=== PATIENT | female | born 1960 | race Caucasian/White ===

== ENCOUNTER 2016-07-14 19:08 | Emergency (ER) | payer MEDICARE ==
[2016-07-14 19:41] LABS: Hemoglobin 13.9 gm/dL (12.5-16.0); Mean Corpuscular Hemoglobin 29.4 pg (27-31); Mean Corpuscular Hgb Conc 33.1 g/dl (32-36); Mean Platelet Volume 11.2 fl (6.0-9.5); Neutrophil # 6.7 K/mm3 (1.3-6.0); Neutrophil % 62.5 % (42-75.0); Platelet Count 195 K/mm3 (150-450); Red Blood Count 4.72 M/mm3 (4.2-5.4); Red Cell Distribution Width 13.5 % (11.5-14.0); White Blood Count 10.6 K/mm3 (4.0-10.5)
[2016-07-14 19:52] LABS: Prothrombin Time (Patient) 9.3 Seconds (9.4-11.4)
[2016-07-14 19:54] LABS: INR 0.89 INR (0.90-1.10); Partial Thrombolplastin Time 25.8 Seconds (24-32)
[2016-07-14 19:57] LABS: ALT 23 U/L (19-67); AST 13 U/L (0-48); Albumin * 3.1 gm/dl (3.4-5.0); Alkaline Phosphatase * 81 U/L (50-170); Anion Gap 13.2 mmol/L (6.8-13.8); BUN/Creatinine Ratio 16.9 (9.0-21.6); Bilirubin, Total 0.3 mg/dL (0.0-1.1); Blood Urea Nitrogen 15 mg/dL (3-23); Ca. Corrected For Albumin 8.5 mg/dL (8.4-10.2); Calcium * 8.1 mg/dL (7.9-10.9); Carbon Dioxide 26.3 mmol/L (24-32.6); Chloride 105 mmol/L (97-106); Glucose * 109 mg/dL (70-110); Potassium 3.5 mmol/L (3.4-4.6); Sodium 141 mmol/L (132-142); Total Protein 7.5 gm/dL (6.2-8.2); Troponin I Less than 0.017 ng/ml (0.00-0.10)
--- NOTE | 2016-07-14 20:02 | ERNOTE ---
Chest Pain/Cardiac HPI Date of Service: 07/14/16 Chief Complaint: Chest Pain Time Seen by Provider: 07/14/16 19:58 Source: patient Immunizations: IMMUNIZATION HX Immunizations Up to Date Yes History of Influenza Vaccine No Hx Pneumococcal Vaccination Yes Allergies/Adverse Reactions: Allergies penicillin G Allergy (Unknown, Verified 07/14/16 19:22) "old tetanus shots" Allergy (Uncoded 07/14/16 19:22) Home Medications: HOME MEDICATIONS Ibuprofen 09/14/12 [Last Taken Unknown] Gabapentin [Neurontin] 300 mg PO BID 08/06/15 [Last Taken Unknown] Gabapentin [Neurontin] 600 mg PO HS 08/06/15 [Last Taken Unknown] Simvastatin [Zocor] 20 mg PO HS 08/06/15 [Last Taken Unknown] Narrative: URI SX X 1 WEEK. GIVEN SOME ATB BUT IS NO HELP. C/O CHEST PAIN RADIATING TO SHOULDERS. PAIN OCCURING WITH COUGH AND DEEP BREATH. NO FEVER. Review of Systems - Review of Systems Constitutional: Present: recent illness ENT: Present: nose congestion Respiratory: Present: cough, other - CHEST PAIN WITH COUGH Cardiology: Present: no symptoms reported Gastrointestinal/Abdominal: Present: no symptoms reported Musculoskeletal: Present: no symptoms reported Skin: Present: no symptoms reported Neurological: Present: no symptoms reported Hematologic/Lymphatic: Present: no symptoms reported Psych: Present: no symptoms reported All Other Systems: All systems neg except as marked - Patient's Past Medical History Patient History - Medical: Obesity, Other Patient History - Cardiac/Respiratory: Hyperlipidemia Patient History - Cancer: No Hx of Cancer Patient History - Surgical Procedures: Appendectomy, Hysterectomy, Total Knee Replacement, Other Patient History - Other: None - Social History Living Situations: home Psych History: No pertinent hx Smoking Status: Former smoker Alcohol Use: none Drug Use: none - Immunizations Immunizations Up to Date: Yes Hx Pneumococcal Vaccination: Yes History of Influenza Vaccine: No Physical Exam - Physical Exam General Appearance: Present: wd/wn, alert, no apparent distress Ears, Nose, Throat: Present: normal except -, nasal congestion Neck: Present: normal inspection Respiratory: Present: no respiratory distress, normal breath sounds, no accessory muscle use, chest nontender, lungs clear Cardiovascular/Chest: Present: regular rate, rhythm, no murmur, normal peripheral pulses Neurological Exam: Present: alert, oriented Skin Exam: Present: normal color, warm/dry. Absent: skin rash ED Progress - Vital Signs Vital Signs: Vital Signs 07/14/16 19:15 Temperature 36.5 C Pulse Rate 91 Respiratory 20 Rate Blood Pressure 120/73 O2 Sat by Pulse 97 Oximetry - X-Ray X-Ray #1 X-Ray: chest Interpretation: Reviewed by me - CHRONIC CHANGES CONSISTENT WITH COPD , NO INFILTRATE , RIB FX OR PNEUMO - Progress/Reassessment Chief Complaint: Chest Pain Departure - Departure Clinical Impression: Chest pain in adult Disposition: Home Follow Up Needed Condition: Good Instructions: Chest Wall Pain, [id number], Nonspecific Chest Pain, Easy-to- Read Additional Instructions: ALL THE LABS , EKG AND CHEST XRAY HERE ARE NORMAL. TRIAL OF WARM COMPRESSES TO SORE AREA AND TRIAL OF IBUPROFEN OR ALEVE FOR SORENESS. YOUR CHEST PAIN IS LIKE FROM STRAIN CAUSED BY COUGHING. IF WORSE BE SURE TO RETURN TO THE ER OR CHECK WITH YOUR FAMILY DOCTOR. Referrals: Isatu Dolan MD [Primary Care Provider] -
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
[2016-07-14] MEDS ORDERED: ACETAMINOPHEN 325 MG TABLET PO ONE (21:18)
[2016-07-14 23:25] VITALS: BP 116/52
== END 2016-07-14 22:50 | disposition home or self-care (01) ==
LOC: ER 19:08
DX: R07.9 Chest pain, unspecified (principal); Z87.891 Personal history of nicotine dependence

== ENCOUNTER 2016-09-18 07:58 | Inpatient (IN) | payer MEDICARE ==
[~2016-09-18 07:58] MED LIST: MORPHINE SULFATE 15 MG TABLET.SA PO PRN; RINGERS SOLUTION,LACTATED 1,000 ML IV PRN; ROPIVACAINE HCL/PF 100 MG, EPINEPHrine 0.2 MG, KETOROLAC TROMETHAMINE 30 MG in NORMAL S... IJ PRN; TRANEXAMIC ACID 1,000 MG in NORMAL SALINE 100 ML IV PRN; ceFAZolin SODIUM 1 GM VIAL IV PRN
--- OUTSIDE RECORDS SUMMARY | 2016-09-18 08:02 | XMS REPORT | Continuity of Care Document ---
:1960 Author Organization [facility] ([facility]) Address [address] [place] [address] Phone [phone] Care Team Providers Name Role Phone Isatu Dolan Primary Care Provider [phone] Source Comments This disclosure is being made pursuant to the Care Everywhere program, applicable federal and state laws, and may not contain all informaitonavailable regarding this patient.[facility] ([facility]) Active Allergies and Adverse Reactions Allergen Noted [...] 1.753 m (5' 9") 04/02/2016 1:58 PM LATIN AMERICAN STUDIES DIRECTOR Weight 97.977 kg (216 lb) 04/02/2016 1:58 PM LATIN AMERICAN STUDIES DIRECTOR Body Mass Index 31.88 04/02/2016 1:58 PM LATIN AMERICAN STUDIES DIRECTOR Oxygen Saturation 98% 12/27/2013 12:48 PM CDT [...]
[2016-09-18] MEDS ORDERED: RINGERS SOLUTION,LACTATED 1,000 ML IV ONE ×3 (10:10→12:10)
[2016-09-18] MEDS ORDERED: ceFAZolin SODIUM 1 GM VIAL IV ONE (10:30)
[2016-09-18] MEDS ORDERED: MAG HYDROX/ALUMINUM HYD/SIMETH 30 ML UDC PO PRN (12:36)
[2016-09-18] MEDS ORDERED: ZOLPIDEM TARTRATE 5 MG TABLET PO PRN (12:36)
[2016-09-18] MEDS ORDERED: oxyCODONE HCL/ACETAMINOPHEN 1 TAB TABLET PO PRN (12:36)
[2016-09-18] MEDS ORDERED: ACETAMINOPHEN 500 MG TABLET PO PRN (12:36)
[2016-09-18] MEDS ORDERED: diphenhydrAMINE HCL 50 MG/ML VIAL IV PRN (12:36)
[2016-09-18] MEDS ORDERED: HYDROmorphone HCL 1 MG/ML DISP.SYRIN IV PRN (12:36)
[2016-09-18] MEDS ORDERED: PROMETHAZINE HCL 5 MG in DEXTROSE 5 % IN WATER 50 ML IV PRN ×2 (12:36)
[2016-09-18] MEDS ORDERED: MAGNESIUM HYDROXIDE 30 ML UDC PO PRN (12:36)
[2016-09-18] MEDS: DEXTROSE 5%-LACTATED RINGERS 1,000 ML IV PRN ×2 (13:26→19:51)
[2016-09-18] MEDS: KETOROLAC TROMETHAMINE 30 MG/ML VIAL IV SCH ×2 (13:33→20:31)
[2016-09-18] MEDS: ceFAZolin SODIUM 2 GM in DEXTROSE 5 % IN WATER 50 ML IV SCH ×4 (13:33→20:30)
--- NOTE | 2016-09-18 14:30 | OR ---
Operative Report - Dictated Report Narrative: Date: 09/18/2016 Preoperative diagnosis: Right Knee degenerative joint disease. Postoperative diagnosis: Right Knee degenerative joint disease. Procedure: Right Total knee arthroplasty. Surgeon: Gera Adkins M.D. Child Care Coordinator: Mendez Last PA-C, Ivan Herron PA-C Anesthesia: Spinal with regional block and local periarticular joint injection. Complications: None Specimens: Bone for disposal. Estimated blood loss: Minimal. Tourniquet time: 89 Minutes at 325 millimeters of mercury. Retained implants: Depuy Attune size 6 narrow right lugged cemented posterior stabilized femoral component. Size 5 fixed-bearing cemented tibial platform. 6 by 5 millimeter posterior stabilized cross-linked tibial insert. 38 millimeter medialized patella button. Indications: Mrs. Odom is a 55-year-old female who has had long-standing right knee pain. This patient was followed in my clinic for period of time with significant complaints of right knee pain consistent with arthritic changes. They had failed conservative measures including, but not limited to, activity modification, passage of time, medications, and other conservative measures. Patient wished to proceed with surgical treatment. The risks, benefits, and alternatives were discussed in clinic. The risks of , blood clots, bleeding, infection, nerve/tendon blood vessel/ injury, malposition of components, intraoperative fracture, postoperative limited range of motion, persistent pain, failure of components, and need for additional procedures. Patient wished to proceed consent was obtained after answering all questions. Procedure: After marking the correct extremity on the floor, the patient was taken to the operating room. A timeout was performed. IV antibiotics consisting of Ancef were administered prior to the procedure. A regional followed by spinal anesthetic was induced by anesthesia on the operative table with all bony prominences well-padded. Cruz catheter was placed, and a bump was placed under the operative side buttock. SCDs and CINTHIA hose were utilized on the nonoperative leg. A well-padded tourniquet was applied to the operative thigh. The operative leg was then pre-scrubbed with alcohol prepped, and draped in a standard sterile fashion. After exsanguinating the extremity with an Esmarch bandage, the tourniquet was inflated. After marking out the anterior knee for standard incision centered over the patella, the skin was incised and dissected down to the joint retinaculum. The joint retinaculum was marked out as well as the horizontal axis of the patella, and a standard medial parapatellar arthrotomy was then made. The most proximal aspect of the quadriceps tendon and the patella tendon insertion were protected from release. A partial synovectomy was performed as well as a resection of the infrapatellar fat pad. The distal femoral fat pad proximal to the trochlea was also resected using cautery. The soft tissues were elevated off the medial aspect of the proximal tibia using a Hartmann elevator ensuring that we did not transect the medial collateral ligament. Upon initial evaluation range of motion was approximately 5 degrees to 120 degrees of flexion. There were signs of advanced arthrosis in the medial, lateral, and patellofemoral joint spaces. There were large marginal osteophytes which were removed with a rongeur. The knee was hyperflexed and the patella was tucked laterally. Protecting the surrounding soft tissues with Homans, an entry drill was placed down the femoral canal using Whitesides line for guidance into the entry point. The intramedullary femoral alignment arun was utilized in order to cut the distal femur in 5 degrees of valgus resecting 10 millimeters of bone. Next the distal femur was sized to a size 6. A posterior referencing guide was utilized to place the distal femoral cutting block in 3 degrees of external rotation. This was pinned into place. The rotation was confirmed both visually and based on anatomic landmarks. The 4 in 1 cutting jig of the appropriate size was utilized in order to make all bony cuts. The angle wing was used to ensure no notching. Retractors were utilized in order to protect surrounding soft tissues. This cut did not result in any excessive notching. We then cut the box centered over the distal femur. This allowed for resection of the anterior and posterior cruciate ligaments. I then turned my attention to the preparation of the tibia. Using an extra medullary tibial alignment arun, 6 millimeters of bone was resected off the medial articular surface. This was made perpendicular to the mechanical axis of the joint with the alignment arun centered over the ankle mortise. The alignment arun was checked and was noted to be parallel to the mechanical axis, centered over the medial one third of the tibial tubercle, paralleling the anterior surface of the tibia. We then turned our attention to the remaining meniscus and soft tissues. These were removed while protecting the surrounding ligaments and soft tissues. The marginal osteophytes off the anterior, posterior, medial, lateral aspects of the femur and tibia were removed. The tibia was sized out to a size 5. Next the tibia was drilled and punched in an externally rotated position. Next the trial femur and a series of tibial inserts were utilized in order to allow for full extension and maximal flexion. It was found that a 5 millimeter insert gave the best range of motion and stability at multiple flexion points as well as at full extension there was less than 2 mm of gapping both medially and laterally. There is minimal anterior translation with the knee at 90 degrees of flexion and no signs of being able to dislocate the knee. The patella was then prepared. The initial thickness was 26 millimeters. This was reamed down to 15 millimeters parallel to the anterior surface of the patella. It was sized out to a size 38 medialized patella button. This was then drilled and trialed. Without any medial restraint the patella tracked appropriately and did not sublux or dislocate. At this point, it was felt these were the appropriate sized implants, and all trials were removed. The standard periarticular joint injection consisting of ropivacaine, Toradol, and epinephrine were injected into the periarticular joint tissues. The bony surfaces were thoroughly irrigated with a pulsatile- suction saline irrigation device. A bone plug from the prior resected anterior chamfer cut was placed into the drill hole at the distal femur. The bony surfaces were then dried in preparation for placement of the implants. The cement was vacuum mixed per the systems specialist's instructions. The cement was placed on the dry bony surfaces and posterior aspect of the implants. The implants were impacted into place, removing all extruded cement. At this point anesthesia administered tranexamic acid per protocol intravenously. The knee was placed in extension with axial loading with the trial insert while the cement cured. Once the cement cured, all remaining extruded cement was removed. The knee was placed through a range of motion with the trial insert to ensure appropriate range of motion and stability. Final range of motion was approximately 0 to 125 degrees. The knee was again thoroughly irrigated with pulsatile saline lavage. The final polyethylene insert was then impacted into place ensuring no retained soft tissues. The remaining periarticular joint injection was injected. A medium Hemovac drain was placed exiting superior laterally. The knee was then placed over a triangle and the arthrotomy was closed with interrupted #1 Vicryl after thoroughly irrigating the joint. The deep and subcutaneous tissues were closed with interrupted oh and 3-0 Vicryl respectively. Skin was closed with a running subcutaneous 3-0 Monocryl and Prineo Dermabond dressing. 4 x 4's, ABD, Sof-Rol, and a full leg Zain wrap were applied. All sponge, needle, blade, and instrument counts were correct prior to closing the wounds. Postoperative condition: The patient was awoken and transferred to the postanesthesia care unit in stable condition. Plan is to be admitted to the inpatient medical/surgical floor postoperatively for 24 hours of IV antibiotics , physical therapy, occupational therapy, and medical comanagement. Patient will be weightbearing as tolerated with range of motion as tolerated. DVT prophylaxis will be with SCDs, CINTHIA hose, and pharmacological anticoagulation. Anticipated hospital stay is approximately 2-4 days.
[2016-09-18] MEDS ORDERED: ceFAZolin SODIUM 2 GM in DEXTROSE 5 % IN WATER 100 ML IV SCH ×2 (15:00)
[2016-09-18] MEDS: GABAPENTIN 300 MG CAPSULE PO ONE ×2 (15:14→15:18)
[2016-09-18] MEDS: SENNOSIDES/DOCUSATE SODIUM 1 TAB TABLET PO SCH (20:32)
[2016-09-18] MEDS: GABAPENTIN 600 MG TABLET PO SCH (20:37)
[2016-09-18] MEDS ORDERED: SIMVASTATIN 20 MG TABLET ONE (20:41)
[2016-09-18] MEDS: SIMVASTATIN 10 MG TABLET PO SCH (20:42)
[2016-09-19] MEDS: KETOROLAC TROMETHAMINE 30 MG/ML VIAL IV SCH ×4 (01:25→19:12)
[2016-09-19] MEDS: ONDANSETRON HCL/PF 2 MG/ML VIAL IV PRN ×2 (01:26→07:40)
[2016-09-19] MEDS: ceFAZolin SODIUM 2 GM in DEXTROSE 5 % IN WATER 50 ML IV SCH ×2 (01:27)
[2016-09-19] MEDS: DEXTROSE 5%-LACTATED RINGERS 1,000 ML IV PRN (01:36)
[2016-09-19] MEDS: GABAPENTIN 300 MG CAPSULE PO SCH ×2 (05:06→13:30)
[2016-09-19 05:43] LABS: Hematocrit 32.8 % (37.0-47.0); Hemoglobin 10.7 gm/dL (12.5-16.0); Mean Cell Volume 90.1 fl (78-100); Mean Corpuscular Hemoglobin 29.4 pg (27-31); Mean Corpuscular Hgb Conc 32.6 g/dl (32-36); Mean Platelet Volume 11.8 fl (6.0-9.5); Neutrophil # 7.5 K/mm3 (1.3-6.0); Neutrophil % 79.1 % (42-75.0); Platelet Count 150 K/mm3 (150-450); Red Blood Count 3.64 M/mm3 (4.2-5.4); Red Cell Distribution Width 13.5 % (11.5-14.0); White Blood Count 9.4 K/mm3 (4.0-10.5)
[2016-09-19 06:06] LABS: BUN/Creatinine Ratio 13.9 (9.0-21.6); Carbon Dioxide 26.5 mmol/L (24-32.6); Estimated Creat Clear 76.4
[2016-09-19 06:10] LABS: Anion Gap 9.6 mmol/L (6.8-13.8); Potassium 4.1 mmol/L (3.4-4.6)
--- NOTE | 2016-09-19 08:06 | PN ---
Subjective - Date and Time Seen Date: 09/19/16 Time: 08:02 Subjective Narrative: Subjective: Reports nausea. Was able to get to the chair with therapy. Pain is well-controlled. Voiding without any complications. Tolerating by mouth intake. Denies any vomiting. Denies calf pain. Slept well. Physical exam: Alert and oriented to person, place and time Right lower Extremity: Palpable dorsalis pedis pulse. Sensation grossly intact to light touch. Dressings clean and dry. Able to flex and extend ankle and toes. No excessive drainage. Calf and thigh are soft and nontender. Assessment: Postop day 1 status post right total knee arthroplasty. Plan: Continue with physical and occupational therapy weightbearing as tolerated. Continue with anticoagulation. 24 hours postoperative prophylactic antibiotics. Pain control with goal to rely on oral medications. She states that she tolerates hydrocodone and not other pain medicines and thus we will stop all others and try Cochrane. Continue bowel regimen. Will need 6 weeks with walker or assitive device to protect joint while ambulating during the recovery process. Discharge planning. Discontinue drain and Cruz catheter. Repeat labs in a.m. Objective - Vitals Vitals: Last Vital Signs Temp 36.4 C L 09/19/16 06:09 Pulse 68 09/19/16 06:09 Resp 12 09/19/16 06:09 BP 102/51 09/19/16 06:09 Pulse Ox 94 09/19/16 06:09 - Abnormal Lab Findings Abnormal Lab Findings: Abnormal Lab Results 09/19/16 09/19/16 Range/Units 05:32 05:32 RBC 3.64 L (4.2-5.4) M/mm3 Hgb 10.7 L (12.5-16.0) gm/dL Hct 32.8 L (37.0-47.0) % MPV 11.8 H (6.0-9.5) fl Immature Gran # (Auto) 0.04 H (0.000-0.0310) K/mm3 Neutrophils % 79.1 H (42-75.0) % Lymphocytes % 11.4 L (20-51) % Neutrophils # 7.5 H (1.3-6.0) K/mm3 Lymphocytes # 1.1 L (1.5-3.5) k/mm3 Chloride 109 H (97-106) mmol/L Random Glucose 127 H (70-110) mg/dL - Exam Constitutional: Present: Alert, Oriented x3 Cauti Physician Documentation - Urinary Catheter Management Urethral (Cruz) Date of Removal: 09/19/16 Time of Removal: 07:42 Assessment/Plan - Problems/Diagnosis (1) Status post total right knee replacement Problem: Acute (2) Hyperlipidemia Problem: Chronic (3) Neuralgia Problem: Chronic (4) Nausea Problem: Acute
[2016-09-19] MEDS: ENOXAPARIN SODIUM 40 MG/0.4 ML SYRG SC SCH (11:39)
[2016-09-19] MEDS: HYDROcodone/ACETAMINOPHEN 1 EACH TABLET PO PRN (19:57)
[2016-09-19] MEDS: SIMVASTATIN 10 MG TABLET PO SCH (19:59)
[2016-09-19] MEDS: SENNOSIDES/DOCUSATE SODIUM 1 TAB TABLET PO SCH (19:59)
[2016-09-19] MEDS: GABAPENTIN 600 MG TABLET PO SCH (20:00)
[2016-09-20] MEDS: KETOROLAC TROMETHAMINE 30 MG/ML VIAL IV SCH ×2 (01:34→07:03)
[2016-09-20] MEDS: GABAPENTIN 300 MG CAPSULE PO SCH ×2 (05:35→14:26)
[2016-09-20 05:47] LABS: Hematocrit 31.9 % (37.0-47.0); Hemoglobin 10.4 gm/dL (12.5-16.0); Mean Cell Volume 89.9 fl (78-100); Mean Corpuscular Hemoglobin 29.3 pg (27-31); Mean Corpuscular Hgb Conc 32.6 g/dl (32-36); Mean Platelet Volume 12.2 fl (6.0-9.5); Neutrophil % 66.7 % (42-75.0); Platelet Count 130 K/mm3 (150-450); Red Blood Count 3.55 M/mm3 (4.2-5.4); Red Cell Distribution Width 13.4 % (11.5-14.0)
[2016-09-20 06:04] LABS: Anion Gap 12.1 mmol/L (6.8-13.8); BUN/Creatinine Ratio 13.3 (9.0-21.6); Calcium * 8.1 mg/dL (7.9-10.9); Carbon Dioxide 27.7 mmol/L (24-32.6); Estimated Creat Clear 72.7; Potassium 3.8 mmol/L (3.4-4.6)
--- NOTE | 2016-09-20 11:31 | DS ---
(1) Acute blood loss anemia Problem: Acute (2) Nausea Problem: Acute (3) Status post total right knee replacement Problem: Acute (4) Hyperlipidemia Problem: Chronic (5) Neuralgia Problem: Chronic Description of Stay: Mrs. Odom was admitted to the floor after undergoing right total knee arthroplasty. Tolerated this well. Was admitted to the floor postoperatively for 24 hours of IV antibiotics, pain control, medical comanagement, and occupational and physical therapy. OT and PT were consulted to assist with activities of daily living and ambulation. Was made weightbearing as tolerated with range of motion as tolerated. Pain was initially controlled with IV regimen. This was transitioned to oral once tolerating a by mouth intake. Was resumed on home diet and medications. Had a Cruz catheter inserted and the operating room which was discontinued on postoperative day 1. A drain was placed intraoperatively into the knee which was discontinued on postoperative day 1. Lovenox SCD and CINTHIA hose were utilized for DVT prophylaxis. Vital signs remained stable to the hospital course. Serial labs were obtained which showed a final hemoglobin of 10.4 grams. BMP was reviewed and was stable. Physical examination throughout the hospital course showed an extremity that had sensation that was intact to light touch, palpable pulses, a benign wound, motor intact to the toes, ankle, and knee. Knee range of motion was approximately 5 degrees to 70 degrees. Once an oral pain regimen was tolerated and physical therapy goals were met, it was felt that they were stable for discharge to home. Instructions: Continue with weightbearing as tolerated and range of motion as tolerated. It is OK to shower on the wound if it is not draining. If you note any drainage or for comfort you can cover with dry gauze and tape. Change every 2-3 days as needed. Continue with physical therapy. Resume home diet. Report any fever over 101.5 Fahrenheit, uncontrolled pain, increased drainage, foul odor of drainage, new or increased calf pain or shortness of breath, or any other significant complaints. A 325mg dialy aspirin will be started after finishing anticoagulation if not allergic. Continue with CINTHIA hose on the operative extremity until instructed otherwise. No driving until instructed otherwise. Follow up in approximately 10-14 days. Procedures Performed: see notes below List Procedures: Right total knee arthroplasty Discharge Disposition: Home self care Disposition: Home self-care Condition: Good Discharge Activity: Activity as tolerated, Weight bearing Discharge Diet: General/regular food, Low fat/chol Referrals: Isatu Dolan MD [Primary Care Provider] - Additional Patient Instructions (free text): Follow up Physical Therapy at [facility] outpatient rehab on FridaySeptember 23 at 11: 00 am. Orthopedic follow up appt on October 03 at 10:45 am. Prescriptions (Any new or edited meds): Enoxaparin Sodium [Lovenox] 40 mg SC Q24H #8 disp.syrin HYDROcodone/ACETAMINOPHEN [[place] 5-325] 1 each PO Q3H PRN #90 tablet PRN Reason: Moderate Pain Sennosides/Docusate Sodium [Senokot-S] 2 tab PO HS #30 tablet Complete Home Medications List: Complete Home Medication List: Gabapentin [Neurontin] 300 mg PO 0600 08/06/15 Gabapentin [Neurontin] 600 mg PO HS 08/06/15 Simvastatin [Zocor] 10 mg PO HS 08/26/16 Gabapentin [Neurontin] 300 mg PO 1400 09/18/16 Enoxaparin Sodium [Lovenox] 40 mg SC Q24H #8 disp.syrin 09/20/16 HYDROcodone/ACETAMINOPHEN [[place] 5-325] 1 each PO Q3H PRN #90 tablet 09/20/16 Sennosides/Docusate Sodium [Senokot-S] 2 tab PO HS #30 tablet 09/20/16
[2016-09-20] MEDS: HYDROcodone/ACETAMINOPHEN 1 EACH TABLET PO PRN (12:20)
[2016-09-20] MEDS: ENOXAPARIN SODIUM 40 MG/0.4 ML SYRG SC SCH (12:20)
[2016-09-20 14:59] VITALS: BP 127/63
== END 2016-09-20 17:20 | disposition home or self-care (01) | DRG 470 ==
LOC: MS 07:58
PROVIDERS: ADMIT Orthopaedic Surgery; ATTEND Orthopaedic Surgery
PROC: 0SRC0J9 Replacement of Right Knee Joint with Synthetic Substitute, Cemented, Open Approach (ICD-10-PCS; principal; 2016-09-18 10:50)
DX: M17.0 Bilateral primary osteoarthritis of knee (principal); D62 Acute posthemorrhagic anemia; R11.0 Nausea; E78.5 Hyperlipidemia, unspecified; M79.2 Neuralgia and neuritis, unspecified
CPT/HCPCS: 27447; 36415; 73560; 80048; 85025; 97110; 97116; 97162; 97165; 97530; 97535; J2405

== ENCOUNTER 2018-06-08 06:19 | Inpatient (IN) ==
[~2018-06-08 06:19] MED LIST changes: -MORPHINE SULFATE 15 MG TABLET.SA PO PRN; -RINGERS SOLUTION,LACTATED 1,000 ML IV PRN
[2018-06-08] MEDS: RINGER'S SOLUTION,LACTATED 1,000 ML IV PRN ×2 (07:09→09:15)
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
[2018-06-08] MEDS ORDERED: MAG HYDROX/ALUMINUM HYD/SIMETH 30 ML UDC PO PRN (09:48)
[2018-06-08] MEDS ORDERED: MAGNESIUM HYDROXIDE 30 ML UDC PO PRN (09:48)
[2018-06-08] MEDS ORDERED: ONDANSETRON HCL/PF 2 MG/ML VIAL IV PRN (09:48)
[2018-06-08] MEDS ORDERED: ZOLPIDEM TARTRATE 5 MG TABLET PO PRN (09:48)
[2018-06-08] MEDS ORDERED: HYDROmorphone HCL 1 MG/ML DISP.SYRIN IV PRN (09:48)
[2018-06-08] MEDS ORDERED: diphenhydrAMINE HCL 50 MG/ML VIAL IV PRN (09:48)
[2018-06-08] MEDS ORDERED: ACETAMINOPHEN 500 MG TABLET PO PRN (09:48)
--- NOTE | 2018-06-08 09:58 | OR ---
Operative Report - Dictated Report Narrative: Date: 06/08/2018 Preoperative diagnosis: Right hip degenerative joint disease. Postoperative diagnosis: Right hip degenerative joint disease. Procedure: Right Total hip arthroplasty. Surgeon: Gera Adkins M.D. Straight Truck Driver: Mendez Last PA-C (provided an essential set of skilled, educated and assisted with transfer, positioning, prepping, draping, manipulation, traction, irrigation, suturing, and placement of dressings all of which cannot be performed by the available surgical crew) Anesthesia: Spinal and local periarticular joint injection. Complications: None Specimens: Bone for disposal. Estimated blood loss: 150 milliliters. Retained implants: Depuy Hale size 4 femoral stem standard offset. Size 54 millimeter outside diameter 3-hole [place] Gription acetabular cup. 54 millimeter outside by 36 millimeter inside diameter highly cross-linked acetabular liner. 36 millimeter diameter +1.5 millimeter ceramic femoral head. Cancellous 6.5mm screw 35 millimeter length Indications: Mrs. Odom is a 57-year-old female who has had long-standing right hip pain and arthrosis. This patient was followed in my clinic for period of time with significant complaints of right hip pain consistent with arthritic changes. She failed conservative measures including but not limited to activity modification, passage of time, medications, and other conservative measures. Patient wished to proceed with surgical treatment. The risks, benefits, and alt ernatives were discussed in clinic. The risks of , blood clots, bleeding, infection, nerve/tendon blood vessel/ injury, malposition of components, dislocation and/or instability of joint, intraoperative fracture, postoperative limited range of motion, persistent pain, failure of components, and need for additional procedures. Patient wished to proceed. Consent was obtained after answering all questions. Procedure: After marking the correct extremity on the floor, the patient was taken to the operating room. A timeout was performed. IV antibiotics consisting of Ancef were administered prior to the procedure. A spinal anesthetic was induced by anesthesia. A Cruz catheter was inserted. The patient was then transitioned to a lateral position on a well-padded pegboard. An axillary roll was placed. The head was in neutral position. The non- operative down leg was well-padded with SCD and CINTHIA hose in place. The arms were supported and padded to protect from any undue pressure on the bony prominences and nerves. A well-padded anterior and posterior pelvic and chest posts were secured in order to maintain a stable position of the pelvis. This was placed so that the pelvis was perpendicular to the floor. The body was in line with the pelvis. Once it was felt that we had protected all the bony prominences and the patient was well secured with a safety belt as well, the leg was pre-scrubbed with alcohol, prepped and draped in a standard sterile fashion. A standard anterior lateral hip incision was marked out over the greater trochanter. Ioban drapes were then placed. The skin incision was then made. Sharp dissection with a scalpel utilizing cautery for hemostasis was carried out down to the gluteus and iliotibial band fascia. This was split in line with the skin incision. The greater trochanter bursa was excised. The anterior and posterior margins of the abductor tendon were identified. The anterior 1/2-1/3 of the tendon was tagged and reflected off the greater trochanter leaving a sleeve of tendon for repair at the completion of the case. This exposed the underlying hip joint capsule. A limb length stitch was placed in the skin and referencedd off a alma delia on the greater trochanter for evaluation of intraoperative limb lengths. An inverted T-type capsulotomy was made extending this up to the brim of the acetabulum. Using Homans to assist with elevation of the soft tissues off the anterior, superior, and inferior aspects of the femoral neck, the hip was then placed in a figure 4 position and the femoral head was dislocated. With the leg in an externally rotated and adducted position, the cutting flag was utilized in order to alma delia for a standard femoral neck cut approximately a fingerbreadth above the level of the lesser trochanter. This was done with reference to pre-operative films and overall alignment. This was done while protecting the surrounding soft tissues with Homans. The femoral head was then removed and sized for guidance on preparation of the acetabulum. It was noted that there was loss of articular cartilage on both the femoral head and weightbearing portions of the acetabulum. We then returned the leg to the table and turned our attention to the acetabulum. While protecting the surrounding soft tissues, the labrum and remaining tissue in the fovea were excised using a scalpel and cautery. A series of reamers up to size 54 millimeter were utilized to prepare the acetabulum. The final reamer had good purchase and exposed the bleeding subchondral bone. The acetabulum was then thoroughly irrigated ensuring that all bony and cartilaginous materials were removed, and the final acetabular shell was impacted into place. This was placed in approximately 45 degrees of abduction and 20 degrees of anteversion utilizing the outrigger and body axis for alignment. This had a good press fit. 1 6.5mm cancellous screw was placed in the superior posterior quadrant of the acetabulum. The shell was then thoroughly irrigated and the final polyethylene was impacted into place ensuring that it seated completely. This was then protected with a sponge while we returned our attention to the femur. With the leg in a figure 4 position, utilizing Homans for soft tissue protection, a box cutting osteotome, followed by Charnley awl, followed by serial reamers and broaches were utilized in order to prepare the femur. It was found that a size 4 broach gave good axial and rotational stability. The calcar reamer was utilized in order to clean up the cut edges. The proximal femur was visualized to ensure that there were no signs of fracture. A series of heads and necks were trialed. It was found that a standard offset neck and a + 1.5 femoral head gave good overall stability. There was minimal longitudinal instability. With the leg in the position of sleep, the femoral head was well covered. Hip range of motion was able to reach full extension and external rotation to greater than 75 degrees prior to impingement along the posterior acetabulum. The hip was able to be flexed to greater than 90 degrees with internal rotation greater than 60 degrees prior to anterior impingement. The limb lengths were near equal based on comparison to the contralateral side and the prior placed limb length stitch. At this point it was felt these were the appropriately sized femoral components as well as neck and femoral head. The trial implants were removed. The femur was thoroughly irrigated. The final implants were impacted into place, and the hip was reduced. After ensuring that there was no damage to the proximal femur, the standard periarticular joint injection of ropivacaine, Toradol, and epinephrine were injected into the joint capsule and surrounding soft tissues. Anesthesia then administered intravenous tranexamic acid. The capsule was repaired with a single interrupted #1 Vicryl. The abductor tendon was repaired to the greater trochanter utilizing #5 Ethibond through drill holes. This was oversewn with #1 Vicryl. The fascia was closed with interrupted #1 Vicryl. The wounds were thoroughly irrigated as we closed in layers. The deep and subcutaneous fat layers were closed with 0 and 3-0 Vicryl respectively. The subcutaneous tissue was closed with a running 3-0 Vicryl and the skin tony. All sponge, needle, blade, and instrument counts were correct prior to closing the wounds. Sterile dressings consisting of xeroform, 4 x 4's, and tape were applied. The patient was awoken and transferred to her hospital bed and then to the postanesthesia care unit in stable condition. Postoperative condition: The plan is to admit to the medical/surgical inpatient floor postoperatively. There will be a projected 1 to 3 day hospital stay. Postoperatively 24 hours of IV antibiotics, pain control, physical therapy, occupational therapy, and medical comanagement will be utilized. Patient will be weightbearing as tolerated with anterior hip precautions. Postoperative films will be obtained in the recovery room.
[2018-06-08] MEDS: ceFAZolin SODIUM 1 GM in DEXTROSE 5 % IN WATER 100 ML IV SCH ×6 (11:09→23:17)
[2018-06-08] MEDS: KETOROLAC TROMETHAMINE 15 MG/ML VIAL IV SCH ×3 (11:09→23:07)
--- NOTE | 2018-06-08 11:10 | ANES ---
Post Anesthesia Discharge - Transfer of Care Transfer of Care handoff given to nurse: Yes - Discharge from PACU Discharge from PACU when meets criteria: Yes
[2018-06-08] MEDS: DEXTROSE 5%-LACTATED RINGERS 1,000 ML IV PRN ×2 (11:11→20:14)
--- NOTE | 2018-06-08 11:11 | ANES ---
Post Anesthesia Assessment - Vital Signs Vitals: Last Vital Signs Temp 36.1 C 06/08/18 10:05 Pulse 60 06/08/18 10:50 Resp 13 06/08/18 10:50 BP 103/67 06/08/18 10:50 Pulse Ox 100 06/08/18 10:50 Airway Patency: Normal - Mental Status Level Of Consciousness: Awake - Pain Level Pain Score: 5 - N/V Assessment Nausea/Vomiting Presence: None Dehydration:: No - Additional Notes Comments:: Pt. complaining of pain in nonoperative hip. Pain being treated.
[2018-06-08] MEDS: GABAPENTIN 300 MG CAPSULE PO SCH (14:28)
[2018-06-08] MEDS: oxyCODONE HCL/ACETAMINOPHEN 1 TAB TABLET PO PRN ×2 (14:38→20:23)
[2018-06-08] MEDS: SENNOSIDES/DOCUSATE SODIUM 1 TAB TABLET PO SCH (20:19)
[2018-06-08] MEDS: GABAPENTIN 600 MG TABLET PO SCH (20:19)
[2018-06-08] MEDS: SIMVASTATIN 10 MG TABLET PO SCH (20:19)
[2018-06-09] MEDS: KETOROLAC TROMETHAMINE 15 MG/ML VIAL IV SCH ×4 (05:06→23:42)
[2018-06-09] MEDS: GABAPENTIN 300 MG CAPSULE PO SCH ×2 (05:12→14:09)
[2018-06-09] MEDS: oxyCODONE HCL/ACETAMINOPHEN 1 TAB TABLET PO PRN (05:16)
[2018-06-09 05:34] LABS: Hematocrit 33.8 % (37.0-47.0); Hemoglobin 10.8 gm/dL (12.5-16.0); Mean Cell Volume 90.6 fl (78-100); Mean Platelet Volume 11.3 fl (8-12.5); Platelet Count 156 K/mm3 (150-450); Red Blood Count 3.73 M/mm3 (4.2-5.4); Red Cell Distribution Width 13.6 % (11.5-14.0); White Blood Count 10.2 K/mm3 (4.0-10.5)
[2018-06-09 05:38] LABS: Anion Gap 10.5 mmol/L (6.8-13.8); BUN/Creatinine Ratio 13.1 (9.0-21.6); Calcium * 7.9 mg/dL (7.9-10.9); Carbon Dioxide 27.3 mmol/L (24-32.6); Estimated Creat Clear 75.1; Potassium 3.8 mmol/L (3.4-4.6)
[2018-06-09] MEDS: ENOXAPARIN SODIUM 40 MG/0.4 ML SYRG SC SCH (09:07)
--- NOTE | 2018-06-09 16:27 | PN ---
Subjective - Date and Time Seen Date: 06/09/18 Time: 07:45 Subjective Narrative: Subjective: Reports nausea and difficulty sleeping last night. Was able to get up to the chair with therapy. Pain is well-controlled. Voiding without any complications. Tolerating by mouth intake. Denies calf pain. Physical exam: Alert and oriented to person, place and time Right lower extremity: Palpable dorsalis pedis pulse. Sensation grossly intact to light touch. Dressings clean and dry. Able to flex and extend ankle and toes. No excessive drainage. Calf and thigh are soft and nontender. Assessment: Postop day 1 status post right total knee arthroplasty. Plan: Due to the need for pain control, post-operative limited mobility, protection of the surgical site and joint, monitoring of the wound, and the management of chronic medical conditions, she requires continued inpatient care. Continue with physical and occupational therapy weightbearing as tolerated. Continue with anticoagulation. 24 hours postoperative prophylactic antibiotics. Pain control with goal to rely on oral medications -I discontinued her long-acting and Percocet. We will try to rely on hydrocodone for breakthrough pain. Continue bowel regimen. Will need 6 weeks with walker or assitive device to protect joint while ambulating during the recovery process. Discharge planning. Discontinue Cruz catheter. Due to her living condition as she lives alone as well as her difficulty with mobility, we are considering skilled therapy and will continue to see how she progresses with therapy. Objective - Vitals Vitals: Last Vital Signs Temp 36.7 C 06/09/18 13:30 Pulse 76 06/09/18 13:30 Resp 12 06/09/18 13:30 BP 114/48 06/09/18 13:30 Pulse Ox 97 06/09/18 13:30 - Abnormal Lab Findings Abnormal Lab Findings: Abnormal Lab Results 06/09/18 06/09/18 Range/Units 05:10 05:10 RBC 3.73 L (4.2-5.4) M/mm3 Hgb 10.8 L (12.5-16.0) gm/dL Hct 33.8 L (37.0-47.0) % Random Glucose 113 H (70-110) mg/dL Cauti Physician Documentation - Urinary Catheter Management Urethral (Cruz) Date of Insertion: 06/08/18 Time of Insertion: 08:00 Date of Removal: 06/09/18 Time of Removal: 05:23 Assessment/Plan - Problems/Diagnosis (1) Acute blood loss anemia Problem: Acute (2) Nausea & vomiting Problem: Acute (3) Status post total hip replacement, right Problem: Acute (4) Hyperlipidemia Problem: Chronic (5) Neuralgia Problem: Chronic
[2018-06-09] MEDS: SIMVASTATIN 10 MG TABLET PO SCH (20:51)
[2018-06-09] MEDS: GABAPENTIN 600 MG TABLET PO SCH (20:51)
[2018-06-09] MEDS: SENNOSIDES/DOCUSATE SODIUM 1 TAB TABLET PO SCH (20:51)
[2018-06-09] MEDS: HYDROcodone/ACETAMINOPHEN 1 EACH TABLET PO PRN (20:52)
[2018-06-10] MEDS: KETOROLAC TROMETHAMINE 15 MG/ML VIAL IV SCH (05:17)
[2018-06-10] MEDS: GABAPENTIN 300 MG CAPSULE PO SCH ×2 (05:17→14:27)
[2018-06-10] MEDS: ENOXAPARIN SODIUM 40 MG/0.4 ML SYRG SC SCH (08:50)
--- NOTE | 2018-06-10 13:23 | PN ---
Subjective - Date and Time Seen Date: 06/10/18 Time: 13:22 Subjective Narrative: Subjective: Reports resolved nausea and slept better last night. Was able to walk in [place] with therapy. Pain is well-controlled. Voiding without any complications. Tolerating by mouth intake. Denies calf pain. Physical exam: Alert and oriented to person, place and time Right lower extremity: Palpable dorsalis pedis pulse. Sensation grossly intact to light touch. Dressings clean and dry. Able to flex and extend ankle and toes. No excessive drainage. Calf and thigh are soft and nontender. Assessment: Postop day 2 status post right total knee arthroplasty. Plan: Due to the need for pain control, post-operative limited mobility, protection of the surgical site and joint, monitoring of the wound, and the management of chronic medical conditions, she requires continued inpatient care. Continue with physical and occupational therapy weightbearing as tolerated. Continue with anticoagulation. Pain control with goal to rely on oral medications - tolerating hydrocodone. Continue bowel regimen. Will need 6 weeks with walker or assitive device to protect joint while ambulating during the recovery process. Discharge planning. Due to her living condition as she lives alone as well as her difficulty with mobility, we are considering skilled therapy and will continue to see how she progresses with therapy. Objective - Vitals Vitals: Last Vital Signs Temp 36.7 C 06/10/18 10:16 Pulse 84 06/10/18 10:16 Resp 16 06/10/18 10:16 BP 122/50 06/10/18 10:16 Pulse Ox 97 06/10/18 10:16 Cauti Physician Documentation - Urinary Catheter Management Urethral (Cruz) Date of Insertion: 06/08/18 Time of Insertion: 08:00 Date of Removal: 06/09/18 Time of Removal: 05:23 Assessment/Plan - Problems/Diagnosis (1) Acute blood loss anemia Problem: Acute (2) Nausea & vomiting Problem: Resolved (3) Status post total hip replacement, right Problem: Acute (4) Hyperlipidemia Problem: Chronic (5) Neuralgia Problem: Chronic
--- NOTE | 2018-06-10 17:56 | CONS ---
[facility] - General Date of Service: 06/10/18 Narrative: 57-year-old female status post right hip replacement by Dr. Morris was evaluated at bedside for a reported right ear pain of 3 days duration. Patient reports having multiple ear infections in the past that required oral antibiotics, and while being here in the hospital for hip surgery the pain recurred and is gradually worsening. Patient has not developed fever but says that the side of her face feels warm and she had a right-sided headache. Therefore after evaluating patient with an autoscope and confirming bilateral acute otitis media, I prescribed oral antibiotics which she is to take every 8 hours for 7 days. Patient is to follow-up with her PCP for resolution of her acute otitis media of the right ear. Source: patient Exam Limitations: physical impairment - History of Present Illness Timing/Duration: getting worse Severity: moderate Associated Symptoms: headaches Allergies/Adverse Reactions: Allergies penicillin G Allergy (Mild, Verified 06/08/18 11:20) Hives, swelling of tongue morphine Adverse Reaction (Intermediate, Verified 06/08/18 11:20) extreme nausea and vomitting "old tetanus shots" Adverse Reaction (Mild, Uncoded 06/08/18 11:20) RASH, SWELLING, HAS HAD "NEW" SERUM AND TOLERATES Home Medications: Home Medications Medication Instructions Recorded Last Taken gabapentin 600 mg tablet 600 mg PO HS #180 tab 12/10/17 Unknown gabapentin 300 mg capsule 300 mg PO .COMPLEX #180 cap 04/10/18 Unknown simvastatin 10 mg tablet 10 mg PO HS #60 tab 04/17/18 Unknown Ibuprofen 800 mg PO PRN PRN 06/08/18 Unknown Procedures Artificial pneumothorax for collapse of lung (06/22/04) Closure of skin and subcutaneous tissue of other sites (06/22/04) Injection of anesthetic into sympathetic nerve for analgesia (08/08/04) Injection of steroid (08/08/04) Other injection into sympathetic nerve or ganglion (08/08/04) Repair Right Foot Skin, External Approach (08/06/15) Replacement of Right Knee Joint with Synthetic Substitute, Cemented, Open Approach (09/18/16) Medications - Medications Current Medications: Current Medications Hydrocodone Bitart/Acetaminophen ([place] 5-325) 1 each PO Q2H PRN PRN Reason: Moderate Pain (pain scale 4-6) Stop: 07/09/18 08:02 Last Admin: 06/09/18 20:52 Dose: 0.5 each Documented by: Enoxaparin Sodium (Lovenox) 40 mg SC Q24H [facility] Stop: 07/09/18 08:50 Last Admin: 06/10/18 08:50 Dose: 40 mg Documented by: Gabapentin (Neurontin) 300 mg PO BID@0600,1400 [facility] Stop: 07/08/18 14:01 Last Admin: 06/10/18 14:27 Dose: 300 mg Documented by: Gabapentin (Neurontin) 600 mg PO [facility] Stop: 07/08/18 21:01 Last Admin: 06/09/18 20:51 Dose: 600 mg Documented by: Dextrose/Lactated Ringer's (Dextrose 5%-Lr) 1,000 mls @ 125 mls/hr IV .Q8H PRN PRN Reason: HYDRATION Stop: 07/08/18 09:49 Last Infusion: 06/09/18 05:26 Dose: Infused Documented by: Ondansetron HCl (Zofran) 4 mg IV Q4H PRN PRN Reason: Nausea And Vomiting Stop: 07/08/18 09:49 Last Admin: 06/09/18 07:48 Dose: 4 mg Documented by: Oxycodone HCl (Oxycontin) 10 mg PO ONCE PRN PRN Reason: pre op hip surgery Stop: 07/08/18 06:01 Last Admin: 06/08/18 07:38 Dose: 10 mg Documented by: Senna/Docusate Sodium (Senokot-S) 2 tab PO [facility] Stop: 07/08/18 21:01 Last Admin: 06/09/18 20:51 Dose: 2 tab Documented by: Simvastatin (Zocor) 10 mg PO [facility] Stop: 07/08/18 21:01 Last Admin: 06/09/18 20:51 Dose: 10 mg Documented by: Physical Examination - Exam Vital Signs: Vital Signs - Last Taken Temp 37.4 C 06/10/18 15:57 Pulse 97 06/10/18 15:57 Resp 18 06/10/18 15:57 BP 126/61 06/10/18 15:57 Pulse Ox 96 06/10/18 15:57 O2 Oxygen Delivery Method Room Air - Assessments/Findings (1) Acute pain of right ear Problem: Acute (2) Acute otitis media Problem: Acute
[2018-06-10] MEDS: CLINDAMYCIN HCL 150 MG CAPSULE PO SCH (18:21)
[2018-06-10] MEDS: SENNOSIDES/DOCUSATE SODIUM 1 TAB TABLET PO SCH (20:40)
[2018-06-10] MEDS: HYDROcodone/ACETAMINOPHEN 1 EACH TABLET PO PRN (20:40)
[2018-06-10] MEDS: SIMVASTATIN 10 MG TABLET PO SCH (20:40)
[2018-06-10] MEDS: GABAPENTIN 600 MG TABLET PO SCH (20:40)
[2018-06-11] MEDS: CLINDAMYCIN HCL 150 MG CAPSULE PO SCH ×2 (01:13→10:17)
[2018-06-11] MEDS: GABAPENTIN 300 MG CAPSULE PO SCH (05:36)
--- NOTE | 2018-06-11 07:50 | DS ---
(1) Acute blood loss anemia Problem: Acute (2) Nausea & vomiting Problem: Resolved (3) Status post total hip replacement, right Problem: Acute (4) Hyperlipidemia Problem: Chronic (5) Neuralgia Problem: Chronic (6) Acute otitis media Problem: Acute Description of Stay: Mrs. Odom was admitted to the floor after undergoing right total hip arthroplasty. Tolerated this well. Was admitted to the floor postoperatively for 24 hours of IV antibiotics, pain control, medical comanagement, and occupational and physical therapy. OT and PT were consulted to assist with activities of daily living and ambulation. Was made weightbearing as tolerated with anterior hip precautions. Pain was initially controlled with IV regimen. This was transitioned to oral once tolerating a by mouth intake. She did have some nausea with her medications and she was taking minimal Franklin for pain. Was resumed on home diet and medications. Had a Cruz catheter inserted and the operating room which was discontinued on postoperative day 1. Lovenox SCD and CINTHIA hose were utilized for DVT prophylaxis. Vital signs remained stable to the hospital course. Serial labs were obtained which showed a final hemoglobin of 10.8 grams. BMP was reviewed and was stable. Physical examination throughout the hospital course showed an extremity that had sensation that was intact to light touch, palpable pulses, a benign wound, motor intact to the toes, ankle, and knee. She was somewhat slow to progress in physical therapy and do her living situation was felt that she would benefit from continued skilled therapy at a nursing facility. She is being discharged today. Instructions: Continue with weightbearing as tolerated and anterior hip precautions with no active abduction. Keep wound dry. Do not bathe or soak the wound. If there is any drainage from the wound keep the wound clean and dry and cover with dry gauze and tape. Change every 2-3 days as needed if there is any drainage. Cover wound while showering. Continue with physical therapy. Resume home diet. Report any fever over 101.5 Fahrenheit, uncontrolled pain, increased drainage, foul odor of drainage, new or increased calf pain or shortness of breath, or any other significant complaints. A 325mg dialy aspirin will be started after finishing anticoagulation if not allergic. Continue with CINTHIA hose on the operative extremity until instructed otherwise. No driving until instructed otherwise. Follow up in approximately 10-14 days. Procedures Performed: see notes below List Procedures: Right total hip arthroplasty Results and Findings: Lab Pending Results 06/09/18 05:10: WBC 10.2, RBC 3.73 L, Hgb 10.8 L, Hct 33.8 L, MCV 90.6, MCH 29.0, MCHC 32.0, RDW 13.6, Plt Count 156, MPV 11.3 06/09/18 05:10: Sodium 140, Plasma Sodium 140, Potassium 3.8, Chloride 106, Carbon Dioxide 27.3, Anion Gap 10.5, BUN 11, Creatinine 0.84, Est GFR (Non-Af Amer) 74, BUN/Creatinine Ratio 13.1, Random Glucose 113 H, Calcium 7.9 Disposition: SNF Condition: Good Discharge Activity: Weight bearing, Other - anterior hip precautions with no active abduction Discharge Diet: General/regular food Mcfp Therapy: Physicial Therapy, Occupation Therapy Referrals: Isatu Dolan MD [Primary Care Provider] - Additional Patient Instructions (free text): - Follow up with Orthopedic Dr. Adkins 06/23 at 9:00am. Please schedule Neurontin for 06:00 and 14:00. Prescriptions (Any new or edited meds): Clindamycin HCl [Cleocin] 300 mg PO Q8H #20 cap Enoxaparin Sodium [Lovenox] 40 mg SC Q24H #7 disp.syrin HYDROcodone/ACETAMINOPHEN [Franklin 5-325] 1 ea PO Q2H PRN #30 tab PRN Reason: Moderate Pain (Pain Scale 4-6) Sennosides/Docusate Sodium [Senokot-S] 2 tab PO HS #60 tab Complete Home Medications List: Complete Home Medication List: gabapentin 600 mg tablet 600 mg PO HS #180 tab 12/10/17 gabapentin 300 mg capsule 300 mg PO .COMPLEX #180 cap 04/10/18 simvastatin 10 mg tablet 10 mg PO HS #60 tab 04/17/18 Ibuprofen 800 mg PO PRN PRN 06/08/18 Acetaminophen [Tylenol] 1,000 mg PO Q6H PRN tablet 06/11/18 Clindamycin HCl [Cleocin] 300 mg PO Q8H #20 cap 06/11/18 Enoxaparin Sodium [Lovenox] 40 mg SC Q24H #7 disp.syrin 06/11/18 HYDROcodone/ACETAMINOPHEN [Franklin 5-325] 1 ea PO Q2H PRN #30 tab 02/28/19 Sennosides/Docusate Sodium [Senokot-S] 2 tab PO HS #60 tab 06/11/18
[2018-06-11] MEDS: ENOXAPARIN SODIUM 40 MG/0.4 ML SYRG SC SCH (08:30)
[2018-06-11 15:05] VITALS: BP 126/66
== END 2018-06-11 13:45 | DRG 470 ==
LOC: MS 06:19
PROVIDERS: ADMIT Orthopaedic Surgery; ATTEND Orthopaedic Surgery
CPT/HCPCS: 36415; 73502; 80048; 85027; 97110; 97116; 97161; 97165; 97535; J2405

== ENCOUNTER 2019-03-22 06:29 | Inpatient (IN) ==
[~2019-03-22 06:29] MED LIST changes: +MORPHINE SULFATE 15 MG TABLET.SA PO PRN
[2019-03-22] MEDS ORDERED: ISOPROPYL ALCOHOL 480 APPL BTL MC ONE (06:40)
[2019-03-22] MEDS ORDERED: ceFAZolin SODIUM 1 GM VIAL ONE (06:41)
[2019-03-22] MEDS: RINGER'S SOLUTION,LACTATED 1,000 ML IV PRN ×2 (07:19→08:10)
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
[2019-03-22] MEDS ORDERED: fentaNYL CITRATE/PF 50 MCG/ML AMPUL ONE (07:29)
[2019-03-22] MEDS ORDERED: ONDANSETRON HCL/PF 2 MG/ML VIAL ONE (07:29)
[2019-03-22] MEDS ORDERED: LIDOCAINE HCL 20 ML VIAL ONE (07:29)
[2019-03-22] MEDS ORDERED: PROPOFOL VIAL IV ONE (07:30)
[2019-03-22] MEDS ORDERED: BUPIVACAINE HCL 50 ML VIAL IJ ONE (07:46)
[2019-03-22] MEDS ORDERED: DEXTROSE 5%-LACTATED RINGERS 1,000 ML IV PRN (10:08)
[2019-03-22] MEDS ORDERED: ONDANSETRON HCL/PF 2 MG/ML VIAL IV PRN (10:08)
[2019-03-22] MEDS ORDERED: HYDROmorphone HCL 1 MG/ML DISP.SYRIN IV PRN (10:08)
[2019-03-22] MEDS ORDERED: ZOLPIDEM TARTRATE 5 MG TABLET PO PRN (10:08)
[2019-03-22] MEDS ORDERED: ACETAMINOPHEN 500 MG TABLET PO PRN (10:08)
[2019-03-22] MEDS ORDERED: oxyCODONE HCL/ACETAMINOPHEN 1 TAB TABLET PO PRN (10:08)
[2019-03-22] MEDS ORDERED: diphenhydrAMINE HCL 50 MG/ML VIAL IV PRN (10:08)
[2019-03-22] MEDS ORDERED: MAGNESIUM HYDROXIDE 30 ML UDC PO PRN (10:08)
[2019-03-22] MEDS ORDERED: MAG HYDROX/ALUMINUM HYD/SIMETH 30 ML UDC PO PRN (10:08)
--- NOTE | 2019-03-22 10:22 | OR ---
Operative Report - Dictated Report Narrative: DATE OF PROCEDURE: 03/22/2019 PHYSICIAN: Gera Adkins MD PROFESSOR OF SOCIOLOGY: Mendez Last PA-c (provided an educated set of skilled hands that consisted with transfer, positioning, prepping, draping, traction, manipulation, irrigation, placement of implants, placement of instruments, closure of wounds, application of dressings, all of which could not be performed by the available surgical crew). 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 ESTIMATED BLOOD LOSS: Minimal TOURNIQUET TIME: 111 minutes at 325 mmHg. SPECIMENS: Implants for disposal, tissue for acute inflammation, culture x1. COMPLICATIONS: None. RETAINED IMPLANTS: DePuy Attune size 5 revision tibial baseplate rotating platform, revision tibial sleeve Porocoat fully coated 29 mm, revision press-fit stem 14 mm x 110 mm, CRS revision rotating platform insert size 6 x 8 mm crosslinked polyethylene. INDICATIONS FOR PROCEDURE: Mrs. Odom is a 58 year-old female who underwent right total knee arthroplasty in the past. She is doing well. She injured the knee resulting in a feeling of instability and pain of her knee. She failed conservative extensive treatments and work-up was negative for infection however there is some concern on bone scan for possible tibial loosening. Options for treatment were discussed including bracing, observation, and surgical revision. She wished to proceed with revision. The risks, benefits, and alternatives were discussed in clinic. The risk of , blood clots, bleeding, infection, nerve/tendon/blood vessel injury, malposition of implants, persistent pain, failure of implants, loosening, stiffness, need for additional procedures, and she wished to proceed. Consent was obtained in the clinic. PROCEDURE: After marking the correct extremity in the preoperative holding area, the patient was taken to the operating room. A timeout was performed. IV antibiotics consisting of Ancef was administered prior to procedure. A regional followed by spinal anesthetic was induced at my request by anesthesia. A Cruz catheter was placed and a bump was placed under the left buttock. A well-padded tourniquet was applied to the thigh. Right leg was then prepped and draped in standard sterile fashion. Her range of motion was 5 of recurvatum to 115 of flexion. After prepping and draping the leg in standard sterile fashion, exsanguinating the extremity and inflating the tourniquet to 325 mmHg, the previous anterior incision was utilized. Sharp dissection was carried through the skin. There were no retained nonabsorbable sutures. The medial retinaculum was marked out and a paramedial arthrotomy was made. There was notable effusion, but no gross signs of purulence or infectious appearing tissues. A partial synovectomy was per formed. The scar tissue was excised. The gutters were cleaned, and the previous polyethylene was excised. The knee was hyperflexed and the tibia was disengaged from the cement mantle. This came free with minimal difficulty. The retained cement was then removed exposing the underlying bone in the proximal tibia. The entry reamer up to a size 14 tibial reamer was utilized in order to prepair the tibial canal. An entry reamer for the implant as well as a 29mm broach was utilized which gave good stability with good fill of the proximal tibial metaphysis. The proximal tibia was then cleaned and cut in order to provide a flat surface. The trial tray size 5 was then impacted with the trial sleeve and this was secured with a punch. Once it was felt that we prepared the tibia, we turned our attention to the femur. This was visualized and manipulated and did not show any signs of gross loosening nor was at the concerning implants based on the clinical and radiographic imaging and thus it was felt that we would isolate the revision to the tibia. The patella appeared to be unremarkable as well. A series of inserts were utilized up to a size 8, which gave good stability in flexion and was able to reach maximal extension without hyperextension, stable to varus and valgus stressing as well as drawer. The patella tracked appropriately and overall, it was felt these were the appropriate implants. The implants were removed. The tissue was thoroughly irrigated with pulsatile saline irrigation. Prior to this, the tissue was sent to pathology for acute inflammation, was noted to have less than 5 neutrophils per high-powered field, and culture was also obtained and sent to pathology. Once the bone was thoroughly irrigated and dried, a periarticular joint injection of ropivacaine, Toradol, and epinephrine was placed. The cement was vacuum mixed per vp security's instructions. The implants were assembled on the back table, and cement was placed on the appropriate surfaces, avoiding any cement on the ingrown surface or the stems, and the implants were then impacted. Once the cement was fully cured, the extruded cement was removed. The final polyethylene insert was placed. The knee was again placed through range of motion and was able to reach full extension, flexion 120 degrees with appropriate tracking of the patella, and no instability. A drain was placed exiting superolaterally. The tourniquet was deflated. Hemostasis was obtained. Capsule was closed with interrupted #1 Vicryl. The deep tissues with 0 Vicryl, subcutaneous tissue with 3-0 Vicryl and 3-0 Monocryl, and the skin with tony. 4 x 4s, Sof-Rol and a full leg Zain was applied and the patient was awoken and transferred to postanesthesia care unit in stable condition. All sponge, needle, and instrument counts were correct prior to closing the wounds.
--- NOTE | 2019-03-22 10:29 | ANES ---
Post Anesthesia Discharge - Transfer of Care Transfer of Care handoff given to nurse: Yes - Discharge from PACU Discharge from PACU when meets criteria: Yes - Discharge to ASU Discharge to ASU-no complications/pt stable: Yes
--- NOTE | 2019-03-22 10:31 | ANES ---
Anesthesia Procedure Note Procedure Note: ANESTHESIA PROCEDURE NOTE Date of Procedure: 03/22/2019. Time of procedure: 40. Performed by: Joseph Johnson CRNA Rn Team Leader: None. 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 Post procedure diagnosis: Same. Procedure: Right ultrasound guided adductor canal block for postoperative analgesia. Indications: The patient is a 58-year-old female, requesting right ultrasound- guided abductor canal block for postoperative analgesia related to revision right total knee arthroplasty. Findings: See below. Details of the procedure: The tissue over the intended target site was cleansed with ChloraPrepand draped in a sterile fashion. 2 ml Lidocaine 1 % was infiltrated to the skin and subcutaneous tissue at the intended target site. Under sterile technique and ultrasound guidance a 20-gauge block needle was inserted through the right sartorius muscle to the saphenous nerve just anterior and medial to the superficial femoral artery and vein. 15 mL's of 0.5% bupivacaine was injected after negative aspiration for blood. Needle tip and spread of local anesthetic surrounding the saphenous nerve was observed throughout the injection with real time ultrasound visualization. The needle was then removed intact. No complications were noted. The images were retained in the Hospital medical database. EBL: Minimal. Fluids: N/A. Specimen: N/A. Post procedure condition: The patient tolerated the procedure well. No complications were noted. Thank you for this consultation. Joseph Johnson CRNA
[2019-03-22] MEDS: KETOROLAC TROMETHAMINE 15 MG/ML VIAL IV SCH ×3 (10:57→21:27)
[2019-03-22] MEDS: ceFAZolin SODIUM 1 GM in DEXTROSE 5 % IN WATER 100 ML IV SCH ×4 (11:12→17:28)
[2019-03-22] MEDS: GABAPENTIN 300 MG CAPSULE PO SCH (13:21)
--- NOTE | 2019-03-22 14:31 | ANES ---
Post Anesthesia Assessment - Vital Signs Vitals: Last Vital Signs Temp 36.6 C 03/22/19 12:32 Pulse 75 03/22/19 12:32 Resp 16 03/22/19 11:02 BP 127/66 03/22/19 12:32 Pulse Ox 97 03/22/19 12:32 Airway Patency: Normal - Mental Status Level Of Consciousness: Awake - Pain Level Pain Score: 1 - N/V Assessment Nausea/Vomiting Presence: None Dehydration:: No
[2019-03-22] MEDS ORDERED: GABAPENTIN 600 MG TABLET PO SCH (21:00)
[2019-03-22] MEDS ORDERED: SENNOSIDES/DOCUSATE SODIUM 1 TAB TABLET PO SCH (21:00)
[2019-03-22] MEDS ORDERED: SIMVASTATIN 10 MG TABLET PO SCH (21:00)
[2019-03-23] MEDS: ceFAZolin SODIUM 1 GM in DEXTROSE 5 % IN WATER 100 ML IV SCH ×2 (00:51)
[2019-03-23] MEDS: KETOROLAC TROMETHAMINE 15 MG/ML VIAL IV SCH ×3 (05:02→16:36)
[2019-03-23] MEDS: GABAPENTIN 300 MG CAPSULE PO SCH ×2 (05:02→13:43)
[2019-03-23 06:23] LABS: Hemoglobin 12.1 gm/dL (12.5-16.0); Mean Cell Volume 90.9 fl (78-100); Mean Corpuscular Hemoglobin 29.7 pg (27-31); Mean Corpuscular Hgb Conc 32.7 g/dl (32-36); Mean Platelet Volume 11.7 fl (8-12.5); Platelet Count 157 K/mm3 (150-450); Red Blood Count 4.07 M/mm3 (4.2-5.4); Red Cell Distribution Width 13.6 % (11.5-14.0); White Blood Count 8.5 K/mm3 (4.0-10.5)
[2019-03-23 06:31] LABS: Anion Gap 12.4 mmol/L (6.8-13.8); Calcium * 8.2 mg/dL (7.9-10.9); Carbon Dioxide 26.7 mmol/L (24-32.6); Potassium 4.1 mmol/L (3.4-4.6)
[2019-03-23] MEDS ORDERED: ENOXAPARIN SODIUM 40 MG/0.4 ML SYRG SC SCH (09:09)
--- NOTE | 2019-03-23 16:36 | DS ---
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 Odom was admitted to the floor after undergoing revision right total knee tibial component arthroplasty. Tolerated this well. Was admitted to the floor postoperatively for 24 hours of IV antibiotics, pain control, medical comanagement, and occupational and physical therapy. OT and PT were consulted to assist with activities of daily living and ambulation. Was made weightbearing as tolerated with range of motion as tolerated. Pain was initially controlled with IV regimen. This was transitioned to oral once tolerating a by mouth intake. Was resumed on home diet and medications. Had a Cruz catheter inserted and the operating room which was discontinued on postoperative day 1. A drain was placed intraoperatively into the knee which was discontinued on postoperative day 1. Lovenox SCD and CINTHIA hose were utilized for DVT prophylaxis. Vital signs remained stable to the hospital course. Serial labs were obtained which showed a final hemoglobin of 12.1 grams down from 14.4 g preoperatively. BMP was reviewed and was stable. Physical examination throughout the hospital course showed an extremity that had sensation that was intact to light touch, palpable pulses, a benign wound, motor intact to the toes, ankle, and knee. Knee range of motion was approximately 5 degrees to 70 degrees. Once an oral pain regimen was tolerated and physical therapy goals were met, it was felt that they were stable for discharge to home. Instructions: Continue with weightbearing as tolerated and range of motion as tolerated. Keep wound clean and dry. Can do a dressing change every day or 2 if any bloody breakthrough. If you note any drainage or for comfort you can cover with dry gauze and tape. Change every 2-3 days as needed. Continue with physical therapy. Resume home diet. Report any fever over 101.5 Fahrenheit, uncontrolled pain, increased drainage, foul odor of drainage, new or increased calf pain or shortness of breath, or any other significant complaints. A 325mg dialy aspirin will be started after finishing anticoagulation if not allergic. Continue with CINTHIA hose on the operative extremity until instructed otherwise. No driving until instructed otherwise. Follow up in approximately 10-14 days. Procedures Performed: see notes below List Procedures: Revision right total knee tibial component Results and Findings: Pending Mircobiology Results 03/22/19 Unknown Knee - Right Miscellaneous Culture - Preliminary No Growth Lab Pending Results 03/22/19 09:47: Pathology Specimen Spec to path 03/23/19 06:14: WBC 8.5, RBC 4.07 L, Hgb 12.1 L, Hct 37.0, MCV 90.9, MCH 29.7, MCHC 32.7, RDW 13.6, Plt Count 157, MPV 11.7 03/23/19 06:14: Sodium 140, Plasma Sodium 140, Potassium 4.1, Chloride 105, Carbon Dioxide 26.7, Anion Gap 12.4, BUN 9, Creatinine 0.82, Est GFR (Non-Af Amer) 76, BUN/Creatinine Ratio 11.0, Random Glucose 113 H, Calcium 8.2 Discharge Location: Home Disposition: Home self-care Condition: Good Discharge Activity: Activity as tolerated, Weight bearing, Other - With wheeled platform walker Discharge Diet: Low fat/chol Referrals: Gera Adkins MD [Staff Physician] - 04/08/19 1:15 pm Problem Oriented Discharge Instructions to Patient/Family: Total Knee Replacement, Care After, [id number] Additional Patient Instructions (free text): Outpatient Physical Therapy scheduled with [facility] on 03-25-19 at 9:00am. Follow-up with Dr. Adkins in the office on 04-08-19 at 1:15pm. Prescriptions (Any new or edited meds): Enoxaparin Sodium [Lovenox] 40 mg SC Q24H #7 disp.syrin Transmission Status: Pending to [facility] #[id number] oxyCODONE HCL/ACETAMINOPHEN [Percocet 5 MG/325 MG] 2 tab PO Q4H PRN #42 tab PRN Reason: Moderate Pain (Pain Scale 4-6) Transmission Status: Received by [facility] #[id number] Sennosides/Docusate Sodium [Senokot-S] 2 tab PO HS #30 tab Transmission Status: Pending to [facility] #[id number] Complete Home Medications List: Complete Home Medication List: gabapentin 300 mg capsule 300 mg PO .COMPLEX #180 cap 10/01/18 gabapentin 600 mg tablet 600 mg PO HS #90 tab 10/01/18 ibuprofen 800 mg tablet 800 mg PO PRN PRN #300 tab 10/05/18 simvastatin 10 mg tablet See Rx Instructions .ROUTE .COMPLEX #90 tablet 02/25/19 Enoxaparin Sodium [Lovenox] 40 mg SC Q24H #7 disp.syrin 03/23/19 Sennosides/Docusate Sodium [Senokot-S] 2 tab PO HS #30 tab 03/23/19 oxyCODONE HCL/ACETAMINOPHEN [Percocet 5 MG/325 MG] 2 tab PO Q4H PRN #42 tab 03/23/19 Amb Orders for Discharge: PT Evaluation and Treatment* Facility: [facility], Location: Rehabilitation Services
[2019-03-23 16:43] VITALS: BP 157/64
== END 2019-03-23 17:05 | disposition home or self-care (01) | DRG 467 ==
LOC: MS 06:29
PROVIDERS: ADMIT Orthopaedic Surgery; ATTEND Orthopaedic Surgery
DX: D62 Acute posthemorrhagic anemia; T84.032A Mechanical loosening of internal right knee prosthetic joint, initial encounter; G56.92 Unspecified mononeuropathy of left upper limb; Y79.2 Prosthetic and other implants, materials and accessory orthopedic devices associated with adverse incidents; M19.90 Unspecified osteoarthritis, unspecified site; E78.5 Hyperlipidemia, unspecified
CPT/HCPCS: 36415; 73560; 80048; 85027; 87070; 87075; 88305; 88331; 97110; 97116; 97161; 97165; 97535; J2405